=== PATIENT | female | born 1945 | race Caucasian/White ===

== ENCOUNTER 2018-01-26 21:10 | Inpatient (IN) | payer OTHER ==
[~2018-01-26] VITALS: Ht 147.3 cm; Wt 80.4 kg
[2018-01-26 21:25] VITALS: Ht 147.3 cm; Wt 80.4 kg
[2018-01-26 23:13] LABS: BASOPHIL % 0.2 % (0-2); PLATELET COUNT 336 x10^3mcL (130-400); RED CELL DISTRIBUTION WIDTH 13.5 % (11.5-14.5)
[2018-01-26 23:28] LABS: CALCIUM 9.1 mg/dL (8.5-10.1); CARBON DIOXIDE 33.4 mmol/L (21-32); CHLORIDE SERUM 100 mmol/L (98-107); GLUCOSE SERUM 119 mg/dL (74-106); POTASSIUM SERUM 3.3 mmol/L (3.5-5.1); SODIUM SERUM 139 mmol/L (136-145)
[2018-01-26 23:32] LABS: ALBUMIN 3.4 g/dL (3.4-5.0); ALKALINE PHOSPHATASE 77 U/L (46-116); ALT/SGPT 20 U/L (14-59); AST/SGOT 18 U/L (15-37); BILIRUBIN TOTAL 0.4 mg/dL (0.20-1.00); TOTAL PROTEIN, SERUM 6.9 g/dL (6.4-8.2)
[2018-01-26 23:33] LABS: LIPASE 13 IU/L (73-393)
[2018-01-27] VITALS (7 sets, daily range): BP systolic 99–132; BP diastolic 57–78
[2018-01-27 00:39] LABS: UA SPECIFIC GRAVITY 1.015 (1.005-1.035); microscopic required? YES; urine erythrocyte 1+ (NEGATIVE)
[2018-01-27] MEDS ORDERED: LOSARTAN POTASS1 TAB PO (01:45)
[2018-01-27] MEDS ORDERED: LEVOTHYROXIN0.075 M2 PO (01:45)
[2018-01-27] MEDS ORDERED: SEROQUEL50 M1 PO (01:46)
[2018-01-27] MEDS ORDERED: QUETIAPINE FUMA25 M1 PO (01:46)
[2018-01-27] MEDS ORDERED: NAMENDA10 M2 PO (01:46)
[2018-01-27] MEDS ORDERED: MACRODANTIN100 M1 PO (01:47)
[2018-01-27] MEDS ORDERED: EXELON4.6 MG/21 TOP (01:48)
[2018-01-27] MEDS ORDERED: OXYBUTYNIN5 MG/5 M1 PO (01:48)
[2018-01-28 05:35] VITALS: BP 108/61
[2018-01-28 06:55] LABS: BASOPHIL % 0.2 % (0-2); PLATELET COUNT 277 x10^3mcL (130-400); RED CELL DISTRIBUTION WIDTH 13.6 % (11.5-14.5)
[2018-01-28 07:16] LABS: CARBON DIOXIDE 27.6 mmol/L (21-32); CHLORIDE SERUM 106 mmol/L (98-107); CREATININE SERUM 0.8 mg/dL (0.6-1.0); GLUCOSE SERUM 87 mg/dL (74-106); POTASSIUM SERUM 3.5 mmol/L (3.5-5.1); SODIUM SERUM 141 mmol/L (136-145)
[2018-01-28 09:19] VITALS: BP 112/71
[2018-01-28 17:03] VITALS: BP 112/71
[2018-01-28 17:06] VITALS: BP 112/71
== END 2018-01-28 18:45 | disposition home or self-care (01) | DRG 872 ==
LOC: ED 21:10 → DU 01-27 00:44
PROVIDERS: Emergency Medicine; Internal Medicine Pulmonary Disease
DX: A41.9 Sepsis, unspecified organism (principal); N39.0 Urinary tract infection, site not specified; K56.609 Unspecified intestinal obstruction, unspecified as to partial versus complete obstruction; G30.9 Alzheimer's disease, unspecified; F02.80 Dementia in other diseases classified elsewhere, unspecified severity, without behavioral disturbance, psychotic disturbance, mood disturbance, and anxiety; E03.9 Hypothyroidism, unspecified; I10 Essential (primary) hypertension
CPT/HCPCS: 97110-GP; 97535-GP; J0696; J1650; J2270; J2550; J3010; J3480; J3490; J7030; Q0092; Q0162

== ENCOUNTER 2018-07-06 17:50 | Emergency (ER) | payer OTHER ==
[~2018-07-06] VITALS: Ht 149.9 cm; Wt 81.6 kg
[~2018-07-06 17:50] MED LIST: EXELON4.6 MG/21 TOP; LEVOTHYROXIN0.075 M2 PO; LOSARTAN POTASS1 TAB PO; MACRODANTIN100 M1 PO; NAMENDA10 M2 PO; OXYBUTYNIN5 MG/5 M1 PO; QUETIAPINE FUMA25 M1 PO; SEROQUEL50 M1 PO
[2018-07-06 18:08] VITALS: Ht 149.9 cm; Wt 81.6 kg
[2018-07-06 19:21] LABS: BASOPHIL % 0.5 % (0-2); PLATELET COUNT 367 x10^3mcL (130-400); RED CELL DISTRIBUTION WIDTH 13.5 % (11.5-14.5)
[2018-07-06 19:45] LABS: ALBUMIN 3.4 g/dL (3.4-5.0); ALKALINE PHOSPHATASE 64 U/L (46-116); ALT/SGPT 26 U/L (14-59); AMYLASE 69 U/L (25-115); AST/SGOT 21 U/L (15-37); BILIRUBIN TOTAL 0.47 mg/dL (0.20-1.00); CALCIUM 10.3 mg/dL (8.5-10.1); CARBON DIOXIDE 31.1 mmol/L (21-32); CHLORIDE SERUM 99 mmol/L (98-107); CHOLESTEROL 195 mg/dL (<200); GLUCOSE SERUM 106 mg/dL (74-106); HDL CHOLESTEROL 58 mg/dL (40-60); LIPASE 179 IU/L (73-393); SODIUM SERUM 139 mmol/L (136-145); T4(THYROXINE) 11.9 ug/dL (4.7-13.3); TOTAL PROTEIN, SERUM 7.1 g/dL (6.4-8.2)
[2018-07-06 19:50] LABS: POTASSIUM SERUM 2.9 mmol/L (3.5-5.1)
[2018-07-06 20:03] LABS: microscopic required? YES; urine erythrocyte 1+ (NEGATIVE)
[2018-07-06 23:02] VITALS: BP 131/83
== END 2018-07-06 23:00 | disposition home or self-care (01) ==
LOC: ED 17:50
PROVIDERS: Emergency Medicine
DX: N39.0 Urinary tract infection, site not specified (principal); G30.9 Alzheimer's disease, unspecified; F02.80 Dementia in other diseases classified elsewhere, unspecified severity, without behavioral disturbance, psychotic disturbance, mood disturbance, and anxiety; E03.9 Hypothyroidism, unspecified; E66.01 Morbid (severe) obesity due to excess calories; Z68.36 Body mass index [BMI] 36.0-36.9, adult
CPT/HCPCS: J7030; Q0092

== ENCOUNTER 2019-04-30 14:39 | Emergency (ER) | payer OTHER ==
[~2019-04-30] VITALS: Ht 149.9 cm; Wt 82.6 kg
[2019-04-30 15:03] VITALS: Ht 149.9 cm; Wt 82.6 kg
[2019-04-30 18:58] LABS: BASOPHIL % 0.9 % (0-2); PLATELET COUNT 309 x10^3mcL (130-400)
[2019-04-30 19:09] LABS: CALCIUM 8.9 mg/dL (8.5-10.1); CARBON DIOXIDE 28.3 mmol/L (21-32); CHLORIDE SERUM 101 mmol/L (98-107); CREATININE SERUM 0.9 mg/dL (0.6-1.0); GLUCOSE SERUM 95 mg/dL (74-106); POTASSIUM SERUM 3.7 mmol/L (3.5-5.1); SODIUM SERUM 136 mmol/L (136-145)
[2019-04-30 19:13] LABS: ALKALINE PHOSPHATASE 75 U/L (46-116); ALT/SGPT 31 U/L (14-59); AST/SGOT 20 U/L (15-37); BILIRUBIN TOTAL 0.36 mg/dL (0.20-1.00); LIPASE 164 IU/L (73-393); TOTAL PROTEIN, SERUM 6.8 g/dL (6.4-8.2)
[2019-04-30 19:16] LABS: ALBUMIN 3.2 g/dL (3.4-5.0)
[2019-04-30 20:30] VITALS: BP 110/77
[2019-04-30 21:02] LABS: microscopic required? YES; urine erythrocyte TRACE (NEGATIVE)
== END 2019-04-30 20:51 | disposition home or self-care (01) ==
LOC: ED 14:39
PROVIDERS: Emergency Medicine
DX: N39.0 Urinary tract infection, site not specified (principal); F03.90 Unspecified dementia, unspecified severity, without behavioral disturbance, psychotic disturbance, mood disturbance, and anxiety; I10 Essential (primary) hypertension; Z98.890 Other specified postprocedural states; Z88.1 Allergy status to other antibiotic agents; Z88.2 Allergy status to sulfonamides; Z91.013 Allergy to seafood
CPT/HCPCS: J1885; J2405; J7030; Q0092